=== PATIENT | male | born 2000 | race Caucasian/White ===

== ENCOUNTER 2018-12-27 13:56 | Emergency (ER) | payer OTHER ==
[2018-12-27] MEDS ORDERED: SODIUM CHLORIDE 0.9% 1,000 ML IV ONE (15:03)
[2018-12-27] MEDS ORDERED: fentaNYL 100 MCG/2 ML VIAL IVP STA ×2 (15:03→16:34)
[2018-12-27] MEDS ORDERED: LIDOCAINE JELLY 2% 5 ML TUBE TOP STA ×2 (15:03→18:03)
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
[2018-12-27] MEDS ORDERED: IOVERSOL 320 100 ML VIAL IVP ONE ×2 (15:19→16:28)
[2018-12-27 15:22] LABS: BASOPHILS % (AUTO) 0.4 %; EOSINOPHILS % (AUTO) 0.1 %; HGB - HEMOGLOBIN 16.4 g/dL (14.0-18.0); LYMPHOCYTES # (AUTO) 1.6 10^3/uL (1.5-3.5); LYMPHOCYTES % (AUTO) 14.7 %; MEAN CORPUSCULAR HEMOGLOBIN 29.2 pg (27.0-31.0); MEAN CORPUSCULAR HGB CONC 32.9 g/dL (32.0-36.0); MEAN CORPUSCULAR VOLUME 88.8 fL (80.0-94.0); MEAN PLATELET VOLUME 10.2 fL (7.4-11.4); MONOCYTES # (AUTO) 0.6 10^3/uL (0.0-1.0); MONOCYTES % (AUTO) 5.3 %; NEUTROPHILS # (AUTO) 8.9 10^3/uL (1.5-6.6); NEUTROPHILS % (AUTO) 79.2 %; PLT - PLATELET COUNT 181 10^3/uL (130-450); RED BLOOD COUNT 5.61 10^6/uL (4.70-6.10); RED CELL DISTRIBUTION WIDTH 13.1 % (12.0-15.0); WHITE BLOOD COUNT 11.2 x10^3/uL (4.8-10.8)
[2018-12-27 15:36] LABS: ALBUMIN 4.7 g/dL (3.2-5.5); ALBUMIN/GLOBULIN RATIO 1.4 (1.0-2.2); BILIRUBIN,TOTAL 1.4 mg/dL (0.2-1.0)
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
[2018-12-27] MEDS ORDERED: ceFAZolin 1 GM VIAL IVP STA (18:04)
[2018-12-27] MEDS ORDERED: BACITRACIN OINT TOP STA (18:15)
[2018-12-27 19:49] VITALS: BP 145/66
== END 2018-12-27 19:49 | disposition home or self-care (01) ==
LOC: ED 13:56
DX: S01.521A Laceration with foreign body of lip, initial encounter (principal); S02.5XXA Fracture of tooth (traumatic), initial encounter for closed fracture; S50.811A Abrasion of right forearm, initial encounter; S80.211A Abrasion, right knee, initial encounter; M54.2 Cervicalgia; V28.0XXA Motorcycle driver injured in noncollision transport accident in nontraffic accident, initial encounter; Y93.89 Activity, other specified; Y92.828 Other wilderness area as the place of occurrence of the external cause
CPT/HCPCS: 12052; 36415; 70450; 70486; 71045; 72125; 73562; 74177; 80053; 83690; 85025; 96361; 96374; 96375; 96376; 99284; A9270; J3490; Q9967